=== PATIENT | male | born 1980 | race Caucasian/White ===

== ENCOUNTER 2018-02-04 02:37 | Emergency (ER) | payer SELFPAY ==
[~2018-02-04] VITALS: Ht 175.3 cm; Wt 105.4 kg
[2018-02-04] MEDS ORDERED: NAPROSYN500 MG PO (02:54)
[2018-02-04 03:16] VITALS: BP 194/133
== END 2018-02-04 03:19 | disposition home or self-care (01) ==
LOC: EME 02:37
DX: G89.29 Other chronic pain (principal); M54.5 Low back pain; Z76.0 Encounter for issue of repeat prescription
CPT/HCPCS: 99281; 99284